=== PATIENT | male | born 1985 | race Asian ===

== ENCOUNTER 2021-01-18 14:51 | Emergency (ER) | payer OTHER ==
[~2021-01-18] VITALS: Ht 167.6 cm; Wt 81.6 kg
[2021-01-18 15:09] VITALS: TEMP 98.2
[2021-01-18 16:21] VITALS: BP 132/80
== END 2021-01-18 16:23 | disposition home or self-care (01) ==
LOC: ED 14:51
DX: S53.492A Other sprain of left elbow, initial encounter (principal); S50.812A Abrasion of left forearm, initial encounter; W10.8XXA Fall (on) (from) other stairs and steps, initial encounter; Y92.89 Other specified places as the place of occurrence of the external cause
CPT/HCPCS: 96372; 99283; J1885